=== PATIENT | male | born 1965 ===

== ENCOUNTER 2024-11-30 12:40 | Emergency (ER) | payer OTHER, SELFPAY ==
[2024-11-30 12:43] VITALS: BP 145/90
[2024-11-30 13:20] VITALS: BMI 28.6
--- NOTE | 2024-11-30 15:08 | ED.GENMED ---
History of Present Illness
General
Chief Complaint: Eye Problems
Source: patient
Exam Limitations: none
Time Seen by Provider: 11/30/24 14:33
Nursing documentation reviewed up to this point in time: agreed with
History of Present Illness
History of Present Illness:
Patient presents to ED secondary to sudden onset of redness noted in his left eye, while having dinner last night, first noticed by his spouse. Denies foreign body sensation. Denies eye pain. Denies blurred vision. Denies dizziness. Denies
headache. Denies recent illness. Patient has been rubbing his eye due to seasonal allergies. In addition, patient states that he had similar episode 3 weeks ago, which resolved spontaneously over the following 3 to 4 days. Patient is scheduled
to see his front desk admin next week for evaluation. Patient does not wear contact lenses. Denies direct trauma.
Review of Systems
Review of Systems
All Other Systems: ROS reviewed and negative except as documented in HPI and ROS
Constitutional: Reports no symptoms
EENT: Reports other (left eye redness)
Respiratory: Denies cough
ABD/GI: Reports no symptoms; Denies vomiting
Musculoskeletal: Reports no symptoms
Skin: Reports no symptoms
Neurological: Reports no symptoms; Denies dizzy or headache
Phy Exam
Physical Exam
Physical Exam:
Physical Exam
General: no apparent distress, not acutely ill. afebrile
Head: nc/at. eomi. conjunctival erythema noted on medial aspect, without pupil involvement. No foreign body noted.
Neck: supple. no meningeal signs.
Neuro: alert and oriented x 3. no focal neurological deficits
Skin: no rash
Psychiatric: well kept. interactive and cooperative
Extremities: no edema. no calf tenderness.
Course
Orders/Labs/Results
Orders:
Orders
11/30/24 13:18
Fluorescein Sodium [Ful-Libby] 5 mg .ROUTE .[facility]
Tetracaine HCl [Tetracaine 0.5% Ophthalmic Solution] 1 drop .ROUTE .[facility]
Vital Signs
Initial and Last Documented VS:
Initial Vital Signs
Temp Pulse Resp BP Pulse Ox
98.3 F 81 16 145/90 98
11/30/24 12:43 11/30/24 12:43 11/30/24 12:43 11/30/24 12:43 11/30/24 12:43
Last Documented Vital Signs
Temp Pulse Resp BP Pulse Ox
98.3 F 81 16 145/90 98
11/30/24 12:43 11/30/24 12:43 11/30/24 12:43 11/30/24 12:43 11/30/24 12:43
MDM/Problems Addressed
MDM/Problems Addressed:
History and exam consistent with atraumatic conjunctival hemorrhage, likely from minor trauma from rubbing his eye. Otherwise, patient is afebrile, neurologically intact, without any evidence of distress. As such, patient will be discharged home
in stable condition, with recommendation to follow-up with his front desk admin scheduled next week for reevaluation.
*Critical Care Note
Total Time (30-74mins, 75-104mins- exclusive of procedures): Not Applicable
ED Attending Note
-
Portions of this chart may have been created with voice recognition software.� Occasional wrong word or��sound alike� substitutions may have occurred due to the inherent limitations of voice recognition software.
Discharge Plan
Departure
Patient Disposition: Home (Routine Discharge)
Date of Disposition: 11/30/24
Time of Disposition: 15:12
Patient with high blood pressure during this ER visit?: No
Discharge Problem:
Conjunctival hemorrhage of left eye
Instructions: Subconjunctival Hemorrhage
Referrals:
Natalio Watkins MD [Family Provider] -
Activity Restrictions/Additional Instructions:
As discussed, please follow-up with your front desk admin next week as scheduled, for reevaluation.
Interventions
Interventions:
*Risk Screen - Suicide Last Done: 11/30/24 12:43
*General Assessment Last Done: 11/30/24 13:20
*Neglect/Abuse Screening Last Done: 11/30/24 12:43
*ED- Fall Risk Assessment Last Done: 11/30/24 13:20
*ED COVID-19 Vaccine History Last Done: 11/30/24 13:20
*Nursing Disposition Last Done: 11/30/24 15:32
Discharge Date and Time
Discharge Date/Time: 11/30/24 15:15
Print Language: PORTUGUESE
== END 2024-11-30 15:15 | disposition home or self-care (01) ==
LOC: EMR 12:40
PROVIDERS: EMERGENCY PHYSICIAN Emergency Medicine; FAMILY PHYSICIAN Internal Medicine
DX: H11.32 Conjunctival hemorrhage, left eye (principal)
CPT/HCPCS: 99282